=== PATIENT | male | born 1970 | race Caucasian/White ===

== ENCOUNTER 2016-10-08 09:18 | Day surgery (SDC) | payer BC ==
[~2016-10-08 09:18] MED LIST: ACETAMINOPHEN 500 MG TABLET PO PRN; HYDROmorphone HCL 2 MG/ML VIAL IV PRN; MAG HYDROX/ALUMINUM HYD/SIMETH 30 ML UDC PO PRN; MAGNESIUM HYDROXIDE 30 ML UDC PO PRN; ONDANSETRON HCL/PF 2 MG/ML VIAL IV PRN; PROMETHAZINE HCL 25 MG in DEXTROSE 5 % IN WATER 50 ML IV PRN; RINGERS SOLUTION,LACTATED 1,000 ML IV PRN; ROPIVACAINE HCL/PF 40 MG in NORMAL SALINE 16 ML IJ PRN; ZOLPIDEM TARTRATE 5 MG TABLET PO PRN; ceFAZolin SODIUM 1 GM VIAL IV PRN; diphenhydrAMINE HCL 50 MG/ML VIAL IV PRN; oxyCODONE HCL/ACETAMINOPHEN 1 TAB TABLET PO PRN
--- OUTSIDE RECORDS SUMMARY | 2016-10-08 09:21 | XMS REPORT | Continuity of Care Document ---
:1970 Author Organization [facility] ([facility]) [place] [address] Phone [phone] Care Team Providers Name Role Phone Anu Hoyt Primary Care Provider [phone] Source Comments This disclosure is being made pursuant to the Care Everywhere program, applicable federal and state laws, and may not contain all informaitonavailable regarding this patient.[facility] ([facility]) Active Allergies and Adverse Reactions Allergen Noted Date Severity Reactions Comments No Known Allergies 09/03/2011 NO REACTION Current Medications Prescription Sig. Disp. Refills Start Date End Date Status aspirin 81 mg tablet Take 81 mg by Active mouth daily. Xlitdxokvpxbw-Irmbpqab-Ufu Take 1 Tab by Active ein (CENTRUM SILVER) Tab mouth daily. Fenofibrate 160 mg Tab Take 160 mg by Active mouth daily. [place]-3 Fatty Take 1,000 mg by Active Acids-Vitamin E (FISH OIL) mouth daily. 1,000 mg Cap lisinopril-hydrochlorothia Take 1 Tab by Active zide 20-25 mg per tablet mouth daily. Active Problems Problem Noted Date Sterilization consult 09/10/2011 Social History Tobacco Use Types Packs/Day Years Used Date Never Smoker Smokeless Tobacco: Current User Chew Alcohol Use Drinks/Week oz/Week Comments No Last Filed Vital Signs Vital Sign Reading Time Taken Blood Pressure 133/67 09/10/2011 4:04 PM CDT Pulse 96 09/10/2011 4:04 PM CDT Temperature 36.5 C (97.7 F) 09/10/2011 4:04 PM CDT Respiratory Rate 16 09/10/2011 4:04 PM CDT Height 1.829 m (6') 09/10/2011 4:04 PM CDT Weight 104.781 kg (231 lb) 09/10/2011 4:04 PM CDT Body Mass Index 31.32 09/10/2011 4:04 PM CDT Oxygen Saturation - - Plan of Care Health Maintenance Due Date Last Done Comments Hepatitis B Vaccine (1 of 3 - Primary Series) 1970 Tdap Vaccine 12/23/1979 Lipid Disorder Screening 1986 MMR Vaccine 1986 Td Vaccine 1986 Influenza Vaccine: Seasonal (#1) 01/05/2016 Results from Last 3 Months Not on file
[2016-10-08] MEDS ORDERED: RINGERS SOLUTION,LACTATED 1,000 ML IV ONE (09:43)
[2016-10-08] MEDS ORDERED: BUPIVACAINE HCL/EPINEPHRINE 10 ML VIAL IJ ONE ×2 (10:00)
--- NOTE | 2016-10-08 12:42 | OR ---
Operative Report - Dictated Report Narrative: Date: 10/08/2016 Physician: Jameel Benz M.D. Statistics Manager: Florentino Naidu PA-C Preoperative diagnosis: Right Knee medial meniscus tear Postoperative diagnosis: Right Knee medial meniscus tear Procedure: Right knee arthroscopy with partial medial meniscectomy Anesthesia: MAC Plus local Complications: None Estimated blood loss: Minimal Tourniquet time: None Specimens: None Retained implants: None Drains: None Indications: Mr. Toscano Is a 45 year-old gentleman who has been followed in my clinic with complaints of knee pain consistent with suspected medial joint pathology. Physical exam and diagnostic imaging were consistent with these complaints and concern for medial meniscus pathology. Conservative measures have failed including, but not limited to, passage of time, activity modification, medications, and injections. The risks, benefits, and alternatives were discussed in clinic. The risks being , bleeding, infection, blood clots, nerve, tendon, ligament, blood vessel injury, persistent pain, arthrosis, need for additional procedures, and persistent symptoms. Consent was obtained in the clinic. Procedure: After marking the correct extremity in the preoperative holding area, a timeout was performed in the operating room. IV antibiotics consisting of Ancef were administered prior to the procedure. A well-padded tourniquet was applied to the operative upper thigh. The leg was prepped and draped in a standard sterile fashion. 0.5% Marcaine with epinephrine was infused into the projected portal sites as well as the intra-articular space. A jessee incision was made for inferior lateral portal. A blunt trocar and cannula was introduced into the knee. The suprapatellar pouch revealed no pathology. The medial patella facet showed no arthrosis. The lateral patella facet showed no arthrosis. The trochlea showed grade 1 change. The medial gutter revealed no pathology. The medial joint space was then entered utilizing a lateral post and valgus stress. A spinal needle was utilized for guidance into placement of an anterior medial portal. This was placed just superior to the medial meniscus ensuring that we could reach the posterior aspect of the medial joint space. A jessee incision was made in the site, and the probe was introduced to the knee. The medial joint space was examined, and the medial femoral condyle showed grade 1 change. The medial tibial plateau showed grade 1 change. The medial meniscus had a parrot-beak type tear that extended from the root to the junction of the anterior middle thirds. This involved approximately 50% the depth and was flipped under the meniscus. The notch was then examined, and the ACL was noted to be intact. The PCL was noted to be intact. The lateral joint space was then examined using a varus force in the figure 4 position. Lateral femoral condyle showed no arthrosis. Lateral tibial plateau showed no arthrosis. The lateral meniscus showed no tear. The lateral gutter showed no pathology. Having identified the surgical pathology, a series of biters and britton were utilized in order to debride the posterior two thirds of the medial meniscus to a depth of approximately 50%. Once it was felt that we adequately addressed the pathology, the knee was thoroughly irrigated. The fluid was evacuated ensuring that we have removed all meniscal, chondral, and any other loose bodies. A final evaluation of the joint showed no additional pathology. The fluid was then evacuated of the knee, and the trocar and camera were removed from the joint. The wounds were closed with interrupted nylon after placing 20 mL of 0.2% ropivacaine into the joint. Dressings consisting of Xeroform, 4 x 4 , ABD, soft roll, and an Pavan were applied. All sponge, needle, blade, and instrument counts were correct prior to closing the wounds. The patient was awoken and transferred to the postanesthesia care unit in stable condition.
[2016-10-08 12:48] VITALS: BP 125/66
[2016-10-08] MEDS ORDERED: SENNOSIDES/DOCUSATE SODIUM 1 TAB TABLET PO SCH (21:00)
== END 2016-10-08 09:19 | disposition home or self-care (01) ==
LOC: AMB 09:18
PROVIDERS: ATTEND Orthopaedic Surgery
PROC: 0SBC4ZZ Excision of Right Knee Joint, Percutaneous Endoscopic Approach (ICD-10-PCS; principal; 2016-10-08 10:45)
DX: M23.203 Derangement of unspecified medial meniscus due to old tear or injury, right knee (principal); I10 Essential (primary) hypertension; E78.5 Hyperlipidemia, unspecified; E55.9 Vitamin D deficiency, unspecified; Z87.891 Personal history of nicotine dependence; Z68.34 Body mass index [BMI] 34.0-34.9, adult